=== PATIENT | female | born 1930 | race Caucasian/White ===

== ENCOUNTER 2018-12-04 17:55 | Inpatient (IN) | payer MEDICARE, OTHER ==
[~2018-12-04] VITALS: Ht 157.5 cm; Wt 80.5 kg
[2018-12-04 21:45] VITALS: BP 146/66
--- NOTE | 2018-12-04 21:45 | NUR ---
NURSE NOTES: Patient admitted directly from [facility], admitting dx: syncope. Patient awake, alert with periods of forgetfulness, no SOB, no acute distress, denies any pain nor any discomfort at this time. IV site on L hand #20, patent and intact. Oriented to staff and unit. Placed groundwater monitoring technician, Vital signs taken. No skin breakdown noted. Assisted pt from gurney to bed, per pt, she uses walker at home. Placed bedside commode. Put bed at lowest position, call light within reach, instructed to press call light for assistance, verbalized understanding. Paged Dr. Morgan for admission orders. Will continue plan of care.
--- NOTE | 2018-12-04 22:05 | NUR ---
NURSE NOTES: Dr. Morgan called back for admission orders. Made him aware that pt and family doesn't remember her medications, will bring info in AM. Admission orders noted and carried out.
[2018-12-04] MEDS ORDERED: Acetaminophen 500mg (ES) tab ORAL PRN (22:15)
[2018-12-05] VITALS: BP 144/62
--- NOTE | 2018-12-05 03:32 | NUR ---
NURSE NOTES: Patient asleep, breathing even and unlabored, no s/sx of pain nor any discomfort at this time. Bed at lowest position, call light within reach. Will continue to monitor.
[2018-12-05 04:00] VITALS: BP 152/79
--- NOTE | 2018-12-05 07:05 | NUR ---
HAND-OFF: Report given to SHIRA Long. Endorsed plan of care.
--- NOTE | 2018-12-05 07:13 | NUR ---
NURSE NOTES: Received patient from SHIRA Jennings. Patient resting in her bed with open eyes. AOx4. no c/o pain and distress at this time. room air sat 97%. IV site intact ,patent and running 1/2 ns 65 ml / hr. Bed brakes engaged. call light and frequent used objects are with in reach. pt instructed to use her call light when need help and do not try to get out of bed with no family assistant for safety reasons. will continue to monitor.
[2018-12-05 08:00] VITALS: BP 122/55
[2018-12-05] MEDS: cefTRIAXone 1 GM in D5W 55 ML IVPB SCH (08:19)
[2018-12-05 08:21] LABS: BASOPHILS % (AUTO) 0.4 % (0.0-2.0); EOSINOPHILS % (AUTO) 1.8 % (0.0-3.0); HEMATOCRIT 34.8 % (37.0-47.0); HEMOGLOBIN 11.5 G/DL (12.0-16.0); LYMPHOCYTES % (AUTO) 21.3 % (20.0-45.0); MEAN CORPUSCULAR VOLUME 90 FL (80-99); MONOCYTES % (AUTO) 7.1 % (1.0-10.0); NEUTROPHILS % (AUTO) 69.4 % (45.0-75.0); PLATELET COUNT 250 K/UL (150-450); RED BLOOD COUNT 3.88 M/UL (4.20-5.40); RED CELL DISTRIBUTION WIDTH 14.8 % (11.6-14.8); WHITE BLOOD COUNT 11.3 K/UL (4.8-10.8)
[2018-12-05] MEDS: Heparin 5000 units/ml inj SUBQ SCH ×2 (08:31→20:47)
[2018-12-05 09:07] LABS: ANION GAP 7 mmol/L (5-15); BLOOD UREA NITROGEN 19 mg/dL (7-18); CALCIUM 8.8 MG/DL (8.5-10.1); CARBON DIOXIDE 26 MMOL/L (21-32); CHLORIDE 104 MMOL/L (98-107); CREATININE 1.7 MG/DL (0.55-1.30); POTASSIUM 4.2 MMOL/L (3.5-5.1); SODIUM 137 MMOL/L (136-145)
[2018-12-05 11:55] VITALS: BP 109/58
--- NOTE | 2018-12-05 14:22 | Cardiology Report ---
APPROVED REPORT EXAM: Two-dimensional and M-mode echocardiogram with Doppler and color Doppler. INDICATION Syncope M-Mode DIMENSIONS IVSd1.9 (0.7-1.1cm)Left Atrium (MM)3.3 (1.6-4.0cm) LVDd3.2 (3.5-5.6cm)Aortic Root2.0 (2.0-3.7cm) PWd1.5 (0.7-1.1cm)Aortic Cusp Exc.1.7 (1.5-2.0cm) LVDs1.1 (2.5-4.0cm) PWs2.2 cm Technically difficult study due to poor acoustic windows. Study quality precludes accurate assessment of regional wall motion. Normal left ventricular chamber size, systolic function and wall motion. Left ventricular ejection fraction estimated to be 60 %. Mild left ventricular hypertrophy. No evidence of pericardial effusion. All other cardiac chamber sizes are within normal limits. Mild focal aortic valve sclerosis with adequate cusp excursion. Mildly thickened mitral valve leaflets with normal excursion. Mild mitral annulus and aortic root calcification. Pulmonic valve not visualized. Normal tricuspid valve structure. IVC is normal in size with physiological collapse. A color flow and spectral Doppler study was performed and revealed: No aortic insufficiency. Mild mitral regurgitation. Mitral diastolic velocities suggest mild left ventricular diastolic dysfunction (Grade I). Mild to moderate tricuspid regurgitation. Tricuspid systolic velocities suggests peak right ventricular systolic pressure of 46 mmHg, consistent with moderate pulmonary hypertension.
[2018-12-05 16:00] VITALS: BP 154/81
--- NOTE | 2018-12-05 16:45 | History and Physical Report ---
DATE OF ADMISSION: 12/04/2018 CHIEF COMPLAINT: New fainting. HISTORY OF PRESENT ILLNESS: This is an 87-year-old, [place] female, who presented to [facility] with fainting . The patient was worked up quite extensively by the ER there. The conclusion was urinary tract infection. The patient was transferred to this hospital for further evaluation and management. The patient had a fainting spell. According to the patient, the patient was ready to see a dentist when she started complaining of close to fainting. PAST MEDICAL HISTORY: Hypertensive cardiovascular disease. HOME MEDICATIONS: Currently unknown. We will try get medication list from the patient's family. ALLERGIES: No known allergies. FAMILY HISTORY: Unremarkable. SOCIAL HISTORY: She lives at home. HABITS: She is nonsmoker and nondrinker. There is no history of illicit drug abuse. REVIEW OF SYSTEMS: HEENT: Hearing and eyesight are normal. ENDOCRINE: No history of diabetes, thyroid or adrenal problems. RESPIRATORY: She denies any shortness of breath, cough, or hemoptysis. CARDIOVASCULAR: She denies chest pain, palpitations. GASTROINTESTINAL: No history of hematochezia, melena, hematemesis, diarrhea, or constipation. GENITOURINARY: She denies dysuria, frequency, urgency, or hematuria. NEUROLOGIC: No history of stroke. PHYSICAL EXAMINATION: GENERAL: This is an elderly female who is in no acute distress. VITAL SIGNS: Blood pressure 122/55, pulse 78 regular, respirations 20, and temperature 98. HEENT: Head is normocephalic and atraumatic. Pupils are equal, round, and reactive to light and accommodation consensually. NECK: Supple. Trachea midline. There was no lymphadenopathy or thyromegaly. LUNGS: Clear to auscultation and percussion. HEART: Regular rate and rhythm without rubs, murmurs, or gallops. ABDOMEN: Soft and nontender. Bowel sounds were active. EXTREMITIES: EXTREMITIES: No clubbing, cyanosis, or edema. NEUROLOGICAL: She is alert and oriented x4. Cranial nerves II through XII intact. LABORATORY AND ANCILLARY DATA: From [place] reviewed. Urinalysis compatible with UTI. Urine culture and sensitivity results are pending. Blood culture results are pending. Troponin levels are within normal limits. CMP, CBC all within normal limits. Chest x-ray results within normal limits. ASSESSMENT: 1. Urinary tract infection. 2. Syncopal episode, etiology unclear, most likely related to the patient's urinary tract infection. PLAN: 1. IV fluid rehydration. 2. Continue telemetry. 3. Orthostatic vital signs. 4. Carotid duplex and 2D echo. Nallely Morgan M.D. DR: Artur JOB#: [id number] CC: SHARA
--- NOTE | 2018-12-05 19:54 | NUR ---
HAND-OFF: Report given to JACK SILVA.
--- NOTE | 2018-12-05 19:55 | NUR ---
NURSE NOTES: Received report from SHIRA Long. Patient up in chair, awake, alert with forgetfulness, no SOB, no acute distress, denies any pain nor any discomfort at this time. IV site on L FA #20, patent and intact. Bed at lowest position, call light within reach. Will continue plan of care.
[2018-12-05 20:00] VITALS: BP 150/78
[2018-12-06] VITALS: BP 136/70
[2018-12-06 04:00] VITALS: BP 131/69
[2018-12-06 06:53] LABS: ANION GAP 7 mmol/L (5-15); BLOOD UREA NITROGEN 18 mg/dL (7-18); CALCIUM 9.2 MG/DL (8.5-10.1); CARBON DIOXIDE 26 MMOL/L (21-32); CHLORIDE 106 MMOL/L (98-107); CREATININE 1.6 MG/DL (0.55-1.30); SODIUM 139 MMOL/L (136-145)
--- NOTE | 2018-12-06 07:13 | NUR ---
NURSE NOTES: Received report from SHIRA Jennings. Patient in bed resting. SR with HR 69. No active s/s cardiac, respiratory distress noticed at this time. Denies pain at this time. IV running at prescribed rate. IV site asymptomatic, patent, intact. Bed in lowest position, side rails up x3, bed alarm on, call light within reach. Will continue to monitor.
--- NOTE | 2018-12-06 07:26 | NUR ---
HAND-OFF: Report given to SHIRA Patton. Endorsed plan of care.
--- NOTE | 2018-12-06 07:40 | NUR ---
NURSE NOTES: Paged Dr. Lyons about Mg level of 1.1. Awaiting for call back. Will continue to monitor.
[2018-12-06 08:00] VITALS: BP 141/72
[2018-12-06] MEDS: cefTRIAXone 1 GM in D5W 55 ML IVPB SCH (08:20)
[2018-12-06] MEDS: Heparin 5000 units/ml inj SUBQ SCH ×2 (08:33→21:00)
[2018-12-06 12:00] VITALS: BP 131/71
--- NOTE | 2018-12-06 13:08 | Diagnostic Imaging Report ---
Indication:Elevated Bun and Creatinine. Technique: Grayscale and duplex Doppler imaging of the kidneys performed. Comparison: None Findings: The size, contour of both kidneys are within normal limits. There may be mild cortical atrophy. There is suggestion of small cysts. Portions of renal anatomy obscured by bowel gas. Suggestion of small bilateral cysts. Both kidneys measure about 9 cm. There is no hydronephrosis. The IVC and urinary bladder are unremarkable. The bladder is moderately distended. IMPRESSION: Suspected medical renal disease. Suggestion of small bilateral renal cysts. Mildly distended urinary bladder
[2018-12-06 16:00] VITALS: BP 154/81
--- NOTE | 2018-12-06 16:56 | Nephrology Progress Note ---
Assessment/Plan Plan Labs CW Acute on Chronic Pyelonephritis. On IVF, IV Abx 2 D Echo CW Pul HTN. Subjective Subjective C/o weakness Objective Objective Last 24 Hour Vital Signs Date Time Temp Pulse Resp B/P (MAP) Pulse Ox O2 Delivery O2 Flow Rate FiO2 12/06/18 16:00 98.1 89 19 154/81 (105) 98 12/06/18 12:00 83 12/06/18 12:00 97.7 79 17 131/71 (91) 98 12/06/18 09:00 Room Air 12/06/18 08:00 98.1 81 17 141/72 (95) 93 12/06/18 08:00 81 85 93 12/06/18 08:00 83 12/06/18 04:00 97.9 69 20 131/69 (89) 95 12/06/18 04:00 69 12/06/18 00:00 98.4 80 20 136/70 (92) 96 12/06/18 00:00 80 12/05/18 21:00 Room Air 12/05/18 20:00 98.1 74 20 150/78 (102) 95 12/05/18 20:00 72 Intake and Output 12/05/18 12/06/18 19:00 07:00 Intake Total 715 ml 100 ml Balance 715 ml 100 ml Intake Oral 100 ml IV Total 715 ml # Voids 2 Laboratory Tests 12/06/18 05:25: Sodium Level 139, Potassium Level 4.0, Chloride Level 106, Carbon Dioxide Level 26, Anion Gap 7, Blood Urea Nitrogen 18, Creatinine 1.6H, Estimat Glomerular Filtration Rate , Glucose Level 88, Calcium Level 9.2, Magnesium Level 1.1L, Thyroid Stimulating Hormone (TSH) 1.474 Height (Feet): 5 Height (Inches): 2.00 Weight (Pounds): 173 Objective CV RR Lungs CTA Abd SNT. BS + E No CCE Nallely Morgan MD Dec 06, 2018 16:56
--- NOTE | 2018-12-06 17:05 | NUR ---
CASE MANAGEMENT:REVIEW 12/04/18 TRANSFERRED FROM [place] 12/06/18 SI: SYNCOPE. UTI 98.1 89 19 154/81 98% ON RA CR+1.6 IS: IV ROCEPHIN Q24 HEPARIN SQ Q12 IVF@65/HR : TO TELEMETRY PLAN: IV REHYDRATION ORTHOSTATIC VITAL SIGNS CAROTID DUPLEX AND 2DECHO INTERQUAL CRITERIA MET
--- NOTE | 2018-12-06 19:42 | NUR ---
HAND-OFF: Report given to SHIRA Diamond.
--- NOTE | 2018-12-06 19:44 | NUR ---
NURSE NOTES: Received report from Abdi SILVA. Pt is in stable condition resting in bed comfortably. Pt denies any pain or discomfort. No s/s of distress or discomfort noted. Bed in low and locked position, call light within reach, bedside table within reach. continue to monitor.
[2018-12-06 20:00] VITALS: BP 148/70
--- NOTE | 2018-12-06 23:05 | Cardiology Progress Note ---
Subjective Subjective [id number] Objective Last 24 Hour Vital Signs Date Time Temp Pulse Resp B/P (MAP) Pulse Ox O2 Delivery O2 Flow Rate FiO2 12/06/18 21:00 Room Air 12/06/18 20:00 93 12/06/18 20:00 99.4 87 18 148/70 (96) 98 12/06/18 16:00 98.1 89 19 154/81 (105) 98 12/06/18 16:00 82 12/06/18 12:00 83 12/06/18 12:00 97.7 79 17 131/71 (91) 98 12/06/18 09:00 Room Air 12/06/18 08:00 98.1 81 17 141/72 (95) 93 12/06/18 08:00 81 85 93 12/06/18 08:00 83 12/06/18 04:00 97.9 69 20 131/69 (89) 95 12/06/18 04:00 69 12/06/18 00:00 98.4 80 20 136/70 (92) 96 12/06/18 00:00 80 Intake and Output 12/05/18 12/06/18 19:00 07:00 Intake Total 715 ml 100 ml Balance 715 ml 100 ml Intake Oral 100 ml IV Total 715 ml # Voids 2 Laboratory Tests Test 12/06/18 05:25 Sodium Level 139 MMOL/L (136-145) Potassium Level 4.0 MMOL/L (3.5-5.1) Chloride Level 106 MMOL/L (98-107) Carbon Dioxide Level 26 MMOL/L (21-32) Anion Gap 7 mmol/L (5-15) Blood Urea Nitrogen 18 mg/dL (7-18) Creatinine 1.6 MG/DL (0.55-1.30) H Estimat Glomerular Filtration Rate mL/min (>60) Glucose Level 88 MG/DL (74-106) Calcium Level 9.2 MG/DL (8.5-10.1) Magnesium Level 1.1 MG/DL (1.8-2.4) L Thyroid Stimulating Hormone (TSH) 1.474 uiU/mL (0.358-3.740) Jennifer Chacko MD Dec 06, 2018 23:05
[2018-12-07] VITALS: BP 140/73
--- NOTE | 2018-12-07 00:15 | Consultation ---
DATE OF CONSULTATION: 12/06/2018 CARDIOLOGY CONSULTATION CONSULTING PHYSICIAN: Jennifer Chacko M.D. REFERRING PHYSICIAN: Nallely Morgan M.D. HISTORY OF PRESENT ILLNESS: Taken from the patient, discussion with the nurses and admitting physician, and review of the patient's chart. The patient is an 87-year-old female who is known to me from before. However, I have not seen her for long time. The patient had a dental work apparently and she had syncope. The ambulance was called and she was taken to [facility] where she was observed and underwent some workup and then she was transferred to [facility]. Asking the questions the patient about her presentation, she does not remember what happened to her and how she ended up here, but she remembers that she has bad teeth and she needs some dental work. She does not have chest pain at present time. She does not have any dyspnea or diaphoresis. She did not have any injury or trauma. She did have a syncope, but the circumstances difficult to elicit. 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 PAST MEDICAL HISTORY: Significant for paroxysmal atrial fibrillation, hypertension, and she has also had thyroid surgery with vocal cord injury, so she has some stridor due to paralyzed of one of vocal cords. The patient also has a history of severe arthritis of lower extremities and she ambulates with a walker. HOME MEDICATIONS: At present time, unfortunately not valuable for review. ALLERGIES: She denies any allergies. HABITS: No history of drinking, smoking, or drug abuse. SOCIAL HISTORY: She apparently lives at home. REVIEW OF SYSTEMS: Significant for some mild stridor due to chronic vocal cord paralysis. She does not have any significant wheezing or shortness of breath. PHYSICAL EXAMINATION: GENERAL: She appears to be stable. VITAL SIGNS: Blood pressure 130/70, heart rate is 70, oxygen saturation is normal, and temperature is normal. HEENT: PERRLA. EOMI. NECK: There is some postsurgical scar on the anterior aspect of her neck, which is well healed and neck is supple. Neck veins are not distended. Carotid upstroke is preserved. She has no carotid bruit. Neck does not have any additional masses or lesions. LUNGS: She has some stridor, scattered, mostly anterior and posterior. Few crackles. BREASTS: No significant masses. HEART: Regular with positive S4 and diminished S1. ABDOMEN: Soft and distended. Positive bowel sounds. EXTREMITIES: Lower extremities, mild edema. Distal pulses palpable. LABORATORY AND DIAGNOSTIC DATA: Her EKG significant for sinus bradycardia only, otherwise unremarkable. Her labs are all reviewed and I also reviewed labs from [place]. There, they did troponin and it was normal. They did multiple labs and they appeared to be unremarkable included lactate level and hemoglobin A1c. Her creatinine was 1.7 and down to 1.6. Her echocardiogram reviewed and it showed normal ejection fraction and elevated pulmonary artery pressure, moderately elevated. IMPRESSION AND RECOMMENDATIONS: Syncope could be vasovagal, not clear if there is some other etiology. The patient should be kept on telemetry for at least 24 hours to make sure she does not have any significant weakness, which causes syncope. The EKG appears to be normal. Troponin, we are going to repeat and her echocardiogram appears to be unremarkable besides elevated pulmonary artery pressure, which could be due to chronic stridor due to vocal cord paralysis or diastolic dysfunction with congestive heart failure, which at present time not clear. I am going to order chest x-ray and I am going to order BNP level for tomorrow and I am going to follow this patient with you. Thank you very much for your referral. Jennifer Chacko M.D. DR: SIMEON JOB#: [id number] CC:
[2018-12-07 04:52] VITALS: BP 145/83
--- NOTE | 2018-12-07 07:29 | NUR ---
HAND-OFF: Report given to Rihi RN. Endorsed plan of care.
--- NOTE | 2018-12-07 07:56 | NUR ---
NURSE NOTES: Received patient from SHIRA Diamond. Patient resting in her bed with open eyes. AOx4. no c/o pain and distress at this time. room air sat 95%. IV site intact ,patent and running 1/2 ns 75 ml / hr. Bed brakes engaged. call light and frequent used objects are with in reach. pt instructed to use her call light when need help and do not try to get out of bed with no lens assistant for safety reasons. will continue to monitor. Addendum: 12/07/18 at 0913 by MIGUE MARTINEZ RN RN iv running 1/2 ns 65 ml/ hr
[2018-12-07 08:00] VITALS: BP 144/79
[2018-12-07] MEDS: cefTRIAXone 1 GM in D5W 55 ML IVPB SCH (09:10)
[2018-12-07] MEDS: Heparin 5000 units/ml inj SUBQ SCH ×2 (09:10→20:01)
[2018-12-07 12:00] VITALS: BP 128/74
--- NOTE | 2018-12-07 12:01 | Diagnostic Imaging Report ---
Indication: Dyspnea Comparison: 04/19/2009 A single view chest radiograph was obtained. Findings: No definite infiltrate or pulmonary vascular congestion identified. The heart is enlarged. The aorta is mildly enlarged consistent with atherosclerotic vascular disease. The bones are osteopenic. Impression: No acute disease
[2018-12-07 16:02] VITALS: BP 139/76
--- NOTE | 2018-12-07 17:23 | Nephrology Progress Note ---
Assessment/Plan Plan Labs CW Acute on Chronic Pyelonephritis. On IVF, IV Abx 2 D Echo CW Pul HTN. Magnesium 1.1 extremely low - needs replacement -see orders! Subjective Subjective C/o weakness Objective Objective Last 24 Hour Vital Signs Date Time Temp Pulse Resp B/P (MAP) Pulse Ox O2 Delivery O2 Flow Rate FiO2 12/07/18 16:02 97.7 97 20 139/76 (97) 95 12/07/18 16:00 99 12/07/18 12:00 97.5 89 19 128/74 (92) 95 12/07/18 12:00 91 12/07/18 09:00 Room Air 12/07/18 08:00 85 90 99 12/07/18 08:00 86 12/07/18 08:00 97.3 85 22 144/79 (100) 97 12/07/18 04:52 98.1 88 18 145/83 (103) 95 12/07/18 04:00 79 12/07/18 00:00 98.3 86 18 140/73 (95) 95 12/07/18 00:00 85 12/06/18 21:00 Room Air 12/06/18 20:00 93 12/06/18 20:00 99.4 87 18 148/70 (96) 98 Intake and Output 12/06/18 12/07/18 19:00 07:00 Intake Total 920 ml Balance 920 ml Other 920 ml # Voids 2 Height (Feet): 5 Height (Inches): 2.00 Weight (Pounds): 173 Objective CV RR Lungs CTA Abd SNT. BS + E No CCE Nallely Morgan MD Dec 07, 2018 17:23
--- NOTE | 2018-12-07 19:02 | NUR ---
NURSE NOTES: Received bedside report from SHIRA Long.Patient stable,A&Ox3,confused at time,SR on conveyor monitor,tolerate r/air well,BS active in all quadrants,lungs diminished sound in auscultation,IV asymptomatic,intact on L f/arm 20 G 1/2 NS @ 65 ml/hr,second bag of Mg running,no c/o pain,no respiratory distress noted,family at bedside,bed secured,call light within a reach.Will continue to monitor
--- NOTE | 2018-12-07 19:35 | NUR ---
HAND-OFF: Report given to MILO SILVA.
[2018-12-07 20:00] VITALS: BP 157/84
--- NOTE | 2018-12-07 22:46 | Cardiology Progress Note ---
Assessment/Plan Assessment/Plan syncope: could be due to hypotension or vasovagal, now is stable need to start physical therapy, continue IVF Subjective Subjective The patient is doing OK, she denies chest pain, or dizziness no syncope, slighlty confused Objective Last 24 Hour Vital Signs Date Time Temp Pulse Resp B/P (MAP) Pulse Ox O2 Delivery O2 Flow Rate FiO2 12/07/18 21:00 Room Air 12/07/18 20:00 98.4 89 19 157/84 (108) 93 12/07/18 19:15 99 12/07/18 16:02 97.7 97 20 139/76 (97) 95 12/07/18 16:00 99 12/07/18 12:00 97.5 89 19 128/74 (92) 95 12/07/18 12:00 91 12/07/18 09:00 Room Air 12/07/18 08:00 85 90 99 12/07/18 08:00 86 12/07/18 08:00 97.3 85 22 144/79 (100) 97 12/07/18 04:52 98.1 88 18 145/83 (103) 95 12/07/18 04:00 79 12/07/18 00:00 98.3 86 18 140/73 (95) 95 12/07/18 00:00 85 General Appearance: no apparent distress EENT: PERRL/EOMI Neck: no JVD Rhythm: NSR Cardiovascular: other - mild wheezing Respiratory/Chest: chest wall non-tender Abdomen: soft Extremities: trace edema Intake and Output 12/06/18 12/07/18 19:00 07:00 Intake Total 920 ml 65 ml Balance 920 ml 65 ml IV Total 65 ml Other 920 ml # Voids 2 Jennifer Chacko MD Dec 07, 2018 22:46
[2018-12-08] VITALS: BP 155/87
[2018-12-08 04:00] VITALS: BP 154/80
--- NOTE | 2018-12-08 07:12 | NUR ---
HAND-OFF: Report given to SHIRA Swann.Patient stable.
--- NOTE | 2018-12-08 07:15 | NUR ---
NURSE NOTES: Report received from SHIRA Reeder. Patient speaks limited [place], however able to express needs. In RA, denies SOB or pain. R wrist 22g IV running 1/2 NS @ 65. Bed on lowest position, brakes engaged, side rails upx2. Call light within easy reach.
[2018-12-08 07:23] LABS: BASOPHILS % (AUTO) 0.6 % (0.0-2.0); EOSINOPHILS % (AUTO) 1.8 % (0.0-3.0); HEMOGLOBIN 12.2 G/DL (12.0-16.0); LYMPHOCYTES % (AUTO) 16.7 % (20.0-45.0); MEAN CORPUSCULAR VOLUME 89 FL (80-99); MONOCYTES % (AUTO) 7.6 % (1.0-10.0); NEUTROPHILS % (AUTO) 73.3 % (45.0-75.0); PLATELET COUNT 243 K/UL (150-450); RED BLOOD COUNT 4.15 M/UL (4.20-5.40); RED CELL DISTRIBUTION WIDTH 14.5 % (11.6-14.8); WHITE BLOOD COUNT 11.8 K/UL (4.8-10.8)
[2018-12-08 07:56] LABS: ALANINE AMINOTRANSFERASE 11 U/L (12-78); ALBUMIN 2.9 G/DL (3.4-5.0); ALBUMIN/GLOBULIN RATIO 0.9 (1.0-2.7); ALKALINE PHOSPHATASE 80 U/L (46-116); ANION GAP 8 mmol/L (5-15); ASPARTATE AMINO TRANSFERASE 19 U/L (15-37); BILIRUBIN,TOTAL 0.5 MG/DL (0.2-1.0); BLOOD UREA NITROGEN 10 mg/dL (7-18); CALCIUM 9.1 MG/DL (8.5-10.1); CARBON DIOXIDE 27 MMOL/L (21-32); CHLORIDE 106 MMOL/L (98-107); CREATININE 1.3 MG/DL (0.55-1.30); POTASSIUM 3.8 MMOL/L (3.5-5.1); SODIUM 141 MMOL/L (136-145)
--- NOTE | 2018-12-08 07:57 | NUR ---
CASE MANAGEMENT:REVIEW 12/08/17 SI: AC/CHR PYELONEPHRITIS 97.8 83 18 154/80 94% ON RA WBC+11.8 IS: NORVASC PO QD IV ROCEPHIN Q24 HEPARIN SQ Q12 IVF@ @65/HR : TELEMETRY STATUS DCP: FROM HOME
[2018-12-08 08:00] VITALS: BP 133/79
[2018-12-08] MEDS: cefTRIAXone 1 GM in D5W 55 ML IVPB SCH (08:31)
[2018-12-08] MEDS: Heparin 5000 units/ml inj SUBQ SCH (08:32)
[2018-12-08 12:00] VITALS: BP 141/72
--- NOTE | 2018-12-08 13:01 | Nephrology Progress Note ---
Assessment/Plan Plan Labs CW Acute on Chronic Pyelonephritis. On IVF, IV Abx 2 D Echo CW Pul HTN. Magnesium 2.3 extremely low - needs replacement -see orders! Subjective Subjective C/o weakness Objective Objective Last 24 Hour Vital Signs Date Time Temp Pulse Resp B/P (MAP) Pulse Ox O2 Delivery O2 Flow Rate FiO2 12/08/18 09:00 Room Air 12/08/18 08:31 93 133/79 12/08/18 08:00 93 101 113 12/08/18 08:00 98.6 93 18 133/79 (97) 94 12/08/18 07:39 96 12/08/18 04:00 97.8 83 18 154/80 (104) 94 12/08/18 03:21 83 12/08/18 00:00 98.4 91 19 155/87 (109) 96 12/07/18 23:25 90 12/07/18 21:00 Room Air 12/07/18 20:00 98.4 89 19 157/84 (108) 93 12/07/18 19:15 99 12/07/18 16:02 97.7 97 20 139/76 (97) 95 12/07/18 16:00 99 Intake and Output 12/07/18 12/08/18 19:00 07:00 Intake Total 1075 ml 697.6 ml Balance 1075 ml 697.6 ml Intake Oral 360 ml IV Total 715 ml 697.6 ml # Voids 3 2 # Bowel Movements 1 1 Laboratory Tests 12/08/18 06:20: White Blood Count 11.8H, Red Blood Count 4.15L, Hemoglobin 12.2, Hematocrit 37.0 , Mean Corpuscular Volume 89, Mean Corpuscular Hemoglobin 29.5, Mean Corpuscular Hemoglobin Concent 33.1, Red Cell Distribution Width 14.5, Platelet Count 243, Mean Platelet Volume 9.6, Neutrophils (%) (Auto) 73.3, Lymphocytes (% ) (Auto) 16.7L, Monocytes (%) (Auto) 7.6, Eosinophils (%) (Auto) 1.8, Basophils (%) (Auto) 0.6, Sodium Level 141, Potassium Level 3.8, Chloride Level 106, Carbon Dioxide Level 27, Anion Gap 8, Blood Urea Nitrogen 10, Creatinine 1.3, Estimat Glomerular Filtration Rate , Glucose Level 93, Calcium Level 9.1, Magnesium Level 2.3, Total Bilirubin 0.5, Aspartate Amino Transf (AST/SGOT) 19, Alanine Aminotransferase (ALT/SGPT) 11L, Alkaline Phosphatase 80, Total Protein 6.2L, Albumin 2.9L, Globulin 3.3, Albumin/Globulin Ratio 0.9L Height (Feet): 5 Height (Inches): 2.00 Weight (Pounds): 177 Objective CV RR Lungs CTA Abd SNT. BS + E No CCE Nallely Morgan MD Dec 08, 2018 13:01
[2018-12-08] MEDS ORDERED: NORVASC2.5 MG ORAL (13:04)
[2018-12-08 16:00] VITALS: BP 139/74
--- NOTE | 2018-12-09 10:23 | Discharge Summary ---
Discharge Summary Discharge Summary _ DATE OF ADMISSION: 12/04/2018 DATE OF DISCHARGE: 12/08/2018 DISCHARGED BY: Dr. Nallely Morgan CONSULTANTS: Dr. Jennifer Alexandra BRIEF HOSPITAL COURSE: Patient is an 87-year-old, [place] female, who presented initially to [facility] for evaluation of fainting. Patient was worked up extensively at [facility]. She was noted to have urinary tract infection. The patient was transferred to [facility] for further evaluation and management. Patient had fainting spell. According to the patient, she was ready to see the dentist when she started complaining of close to fainting. She was then admitted to telemetry. She was given IV fluid rehydration. Orthostatic vitals were checked. She was started on Rocephin. Ship Rigger was consulted. Patient was unable to remember what happened to her and how she ended up in the hospital. She remembered she was at the dental office and before dental work even started, she developed syncopal episode. She has past medical history significant for paroxysmal atrial fibrillation. She was kept on heart monitor. Echocardiogram done showed EF of 60%, right ventricular systolic pressure of 46 consistent with moderate pulmonary hypertension. Carotid duplex did not show any significant plaques. Thyroid function was normal. Kidney function was elevated. Renal ultrasound showed mild cortical atrophy. Suspected medical renal disease. Magnesium level was low. She was given magnesium replacement. She was eventually discharged home. FINAL DIAGNOSES: Acute on chronic pyelonephritis Pulmonary hypertension Hypomagnesemia Syncope possibly due to hypertension or vasovagal DISPOSITION: Patient was discharged home. DISCHARGE MEDICATIONS: Refer to Discharge Medication List. DISCHARGE INSTRUCTIONS: Follow-up in a week. I have been assigned to dictate discharge summary on this account, and I was not involved in the patient's management. Beatriz Bermudez NP Dec 09, 2018 10:22
== END 2018-12-08 17:50 | disposition home or self-care (01) | DRG 690 ==
LOC: 2E 21:30
DX: N10 Acute pyelonephritis (principal); I11.9 Hypertensive heart disease without heart failure; I27.20 Pulmonary hypertension, unspecified; E83.42 Hypomagnesemia; R55 Syncope and collapse; I48.0 Paroxysmal atrial fibrillation; M19.91 Primary osteoarthritis, unspecified site; J38.01 Paralysis of vocal cords and larynx, unilateral
CPT/HCPCS: 36415; 71045; 76770; 80048; 80053; 83735; 84443; 85025; 93306; 93880